=== PATIENT | female | born 2000 | race Two or more races ===

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

== ENCOUNTER 2020-02-03 11:14 | Emergency (ER) | payer OTHER ==
[~2020-02-03] VITALS: Ht 152.4 cm; Wt 53.3 kg
[2020-02-03 11:15] VITALS: BP 110/46
[2020-02-03 11:47] LABS: BASOPHILS % (AUTO) 0 % (0-1); EOSINOPHILS # (AUTO) 0.18 x10^3/uL (0-0.8); EOSINOPHILS % (AUTO) 1 % (1-7); LYMPHOCYTES # (AUTO) 1.31 x10^3/uL (1-6.1); LYMPHOCYTES % (AUTO) 9 % (22-44); MD NO; MEAN CORPUSCULAR HEMOGLOBIN 28.2 pg (27.0-34.8); MEAN CORPUSCULAR HGB CONC 32.6 g/dL (32.4-35.8); MEAN CORPUSCULAR VOLUME 86.4 fL (80-100); MEAN PLATELET VOLUME 7.4 fL (7.4-10.4); MONOCYTES # (AUTO) 0.13 x10^3/uL (0-1.4); MONOCYTES % (AUTO) 1 % (2-9); NEUTROPHILS # (AUTO) 12.45 x10^3/uL (1.8-8.0); NEUTROPHILS % (AUTO) 88 % (42-75); PLATELET COUNT 445 x10^3/uL (130-400); RED BLOOD COUNT 4.47 x10^6/uL (3.82-5.3); RED CELL DISTRIBUTION WIDTH 13.9 % (9.6-15.2)
[2020-02-03 11:58] LABS: ALBUMIN 3.9 g/dL (3.4-5.0); ANION GAP 8 mmol/L (5-15); CALCIUM 8.5 mg/dL (8.5-10.1); CHLORIDE 108 mmol/L (98-107)
--- NOTE | 2020-02-03 12:00 | NUR ---
Pt to room.
--- NOTE | 2020-02-03 12:16 | NUR ---
Pt here for possible miscarriage, pt reports she has been spotting for weeks. Pt reports sever abd pain and not feeling well. Pt reports that she wants to be evaluated. Pt to us at this time.
[2020-02-03 12:21] LABS: CREATININE 0.84 mg/dL (0.55-1.02)
[2020-02-03] MEDS ORDERED: ONDANSETRON ODT 8 MG PO ONE (12:30)
[2020-02-03] MEDS ORDERED: OXYcodone/APAP 5/325MG TABLET PO ONE (12:30)
[2020-02-03] MEDS ORDERED: ONDANSETRON ODT 4 MG ONE (12:53)
[2020-02-03] MEDS ORDERED: OXYcodone/APAP 5/325MG TABLET ONE (12:53)
--- NOTE | 2020-02-03 14:25 | NUR ---
Pt on pelvic bed.
--- NOTE | 2020-02-03 14:59 | NUR ---
waiting for papers.
--- NOTE | 2020-02-03 15:20 | NUR ---
Patient/Caregiver given discharge instructions and they have confirmed that they understand the instructions. Patient ambulatory with steady gait.
== END 2020-02-03 15:21 ==
LOC: ED 15:10
DX: O03.9 Complete or unspecified spontaneous abortion without complication (principal); J45.909 Unspecified asthma, uncomplicated
CPT/HCPCS: 36415; 76801; 80048; 82040; 84702; 85025; 86901; 99284; Q0162

== ENCOUNTER 2020-06-02 06:05 | Emergency (ER) | payer OTHER ==
[~2020-06-02] VITALS: Ht 152.4 cm; Wt 53.5 kg
[2020-06-02 06:44] LABS: MEAN CORPUSCULAR HEMOGLOBIN 28.6 pg (27.0-34.8); MEAN CORPUSCULAR HGB CONC 32.6 g/dL (32.4-35.8); MEAN CORPUSCULAR VOLUME 87.8 fL (80-100); MEAN PLATELET VOLUME 7.3 fL (7.4-10.4); PLATELET COUNT 395 x10^3/uL (130-400); RED BLOOD COUNT 4.43 x10^6/uL (3.82-5.3); RED CELL DISTRIBUTION WIDTH 13.6 % (9.6-15.2)
[2020-06-02 06:52] LABS: ALANINE AMINOTRANSFERASE 19 U/L (12-78); ALBUMIN 3.5 g/dL (3.4-5.0); ANION GAP 5 mmol/L (5-15); CALCIUM 8.6 mg/dL (8.5-10.1); CHLORIDE 110 mmol/L (98-107); CREATININE 1.02 mg/dL (0.55-1.02)
[2020-06-02 06:57] LABS: ALKALINE PHOSPHATASE 54 U/L (45-117); BILIRUBIN,TOTAL 0.3 mg/dL (0.2-1.0); TOTAL PROTEIN 6.8 g/dL (6.4-8.2)
[2020-06-02 07:01] LABS: BASOPHILS # (AUTO) 0.03 x10^3/uL (0-0.3); BASOPHILS % (AUTO) 0 % (0-1); EOSINOPHILS # (AUTO) 0.28 x10^3/uL (0-0.8); EOSINOPHILS % (AUTO) 3 % (1-7); LYMPHOCYTES # (AUTO) 2.47 x10^3/uL (1-6.1); LYMPHOCYTES % (AUTO) 29 % (22-44); MD SCAN; MONOCYTES # (AUTO) 0.59 x10^3/uL (0-1.4); MONOCYTES % (AUTO) 7 % (2-9); NEUTROPHILS # (AUTO) 5.29 x10^3/uL (1.8-8.0); NEUTROPHILS % (AUTO) 61 % (42-75)
--- NOTE | 2020-06-02 07:15 | NUR ---
RECEIVED REPORT FROM LYNETTE AMIN RN. PT CURRENTLY IN US.
--- NOTE | 2020-06-02 07:57 | NUR ---
PT RESTING ON CAROL ANNWILBERT. HALINA. VSS. PT STATES SHE STARTED HAVING LOWER PELVIC PAIN AND BACK PAIN LAST NIGHT WORSE THIS AM WHEN SHE AWOKE. DENIES ANY MEDICAL HX. LBM THIS AM. NO CHANGES.
[2020-06-02 08:34] LABS: MICROSCOPIC AUTO
[2020-06-02 08:56] VITALS: BP 101/56
--- NOTE | 2020-06-02 08:56 | NUR ---
PT RESTING ON GURNEY. NADN. BOJORQUEZ. PT CHART REVIEWED AND PLACED FOR RECHECK.
== END 2020-06-02 09:47 | disposition home or self-care (01) ==
LOC: ED 06:29
DX: K21.0 Gastro-esophageal reflux disease with esophagitis (principal); R10.84 Generalized abdominal pain; J45.909 Unspecified asthma, uncomplicated
CPT/HCPCS: 36415; 76830; 80053; 81001; 83690; 84703; 85025; 93005; 99285

== ENCOUNTER 2021-03-01 10:55 | Emergency (ER) | payer OTHER ==
[~2021-03-01] VITALS: Ht 165.1 cm; Wt 57.2 kg
[2021-03-01 10:57] VITALS: BP 107/74
--- NOTE | 2021-03-01 11:34 | NUR ---
PT IN ROOM, SAFETY PRECAUTIONS IN PLACE, BELONGINGS COLLECTED. SITTER OUTSIDE ROOM FOR SAFETY MONITORING.
[2021-03-01 11:37] LABS: BASOPHILS % (AUTO) 1 % (0-1); EOSINOPHILS % (AUTO) 3 % (1-7); LYMPHOCYTES % (AUTO) 18 % (22-44); MD NO; MEAN CORPUSCULAR HEMOGLOBIN 28.2 pg (27.0-34.8); MEAN CORPUSCULAR HGB CONC 32.8 g/dL (32.4-35.8); MONOCYTES % (AUTO) 7 % (2-9); NEUTROPHILS % (AUTO) 70 % (42-75); PLATELET COUNT 438 x10^3/uL (130-400); RED BLOOD COUNT 4.46 x10^6/uL (3.82-5.3); RED CELL DISTRIBUTION WIDTH 14.7 % (9.6-15.2)
[2021-03-01 11:47] LABS: ALANINE AMINOTRANSFERASE 20 U/L (12-78); ALBUMIN 4.1 g/dL (3.4-5.0); ANION GAP 7 mmol/L (5-15); CALCIUM 8.7 mg/dL (8.5-10.1); CHLORIDE 110 mmol/L (98-107)
[2021-03-01 11:48] LABS: SALICYLATE LEVEL < 1.7 mg/dL (2.8-20.0)
[2021-03-01 11:52] LABS: ALKALINE PHOSPHATASE 52 U/L (45-117); BILIRUBIN,TOTAL 0.5 mg/dL (0.2-1.0); TOTAL PROTEIN 7.1 g/dL (6.4-8.2)
[2021-03-01 12:15] LABS: MICROSCOPIC NOT IND
[2021-03-01 12:33] LABS: AMPHETAMINE SCREEN, URINE Negative (Negative); BENZODIAZEPINE SCREEN, URINE Negative (Negative); CANNABINOID SCREEN, URINE Positive (Negative); COCAINE SCREEN, URINE Negative (Negative); OPIATE SCREEN, URINE Negative (Negative)
[2021-03-01 12:38] LABS: BARBITURATE SCREEN, URINE Negative (Negative); METHADONE SCREEN, URINE Negative (Negative)
--- NOTE | 2021-03-01 12:43 | NUR ---
PT FELT LIKE SHE MIGHT VOMIT SO I GAVE HER EMESIS BAG. MOM IS CURRENTLY IN ROOM.
[2021-03-01] MEDS ORDERED: HYDROXYZINE PAMOATE 50MG CAP ONE (13:36)
--- NOTE | 2021-03-01 13:40 | NUR ---
PT REPORTS INCREASING FEELING OF ANXIETY, MEDICATED PER MAR. MEAL TRAY ORDERED FOR PT.
[2021-03-01] MEDS ORDERED: HYDROXYZINE PAMOATE 50MG CAP PO PRN ×2 (14:00)
--- NOTE | 2021-03-01 14:36 | NUR ---
PROVIDED MEAL TRAY, SITTER OUTSIDE ROOM FOR SAFETY MONITORING.
--- NOTE | 2021-03-01 16:23 | NUR ---
PT RESTING ON GURNEY IN [facility], SITTER OUTSIDE DOOR FOR SAFET MONITORING.
--- NOTE | 2021-03-01 16:27 | NUR ---
REPORT CALLED TO LENY ALEGRIA.
[2021-03-02] MEDS ORDERED: ALBU8.5H8 INH (09:28)
[2021-03-02] MEDS ORDERED: BUDE10.2 INH (09:28)
== END 2021-03-01 16:37 | disposition home or self-care (01) ==
LOC: ED 11:08
DX: F33.9 Major depressive disorder, recurrent, unspecified (principal); R45.851 Suicidal ideations; R42 Dizziness and giddiness; R10.9 Unspecified abdominal pain; R11.0 Nausea; F17.200 Nicotine dependence, unspecified, uncomplicated; J45.909 Unspecified asthma, uncomplicated
CPT/HCPCS: 36415; 80053; 80299; 80307; 80320; 80329; 81003; 84703; 85025; 99284; G0480

== ENCOUNTER 2021-03-01 14:36 | Inpatient (IN) | payer OTHER ==
[~2021-03-01] VITALS: Ht 152.4 cm; Wt 57.2 kg
[2021-03-01] MEDS ORDERED: POLYETHYLENE GLYCOL 17 GM PACKET PO PRN (15:30)
[2021-03-01] MEDS ORDERED: BISACODYL 10 MG SUPP PR PRN (15:30)
[2021-03-01] MEDS ORDERED: ONDANSETRON ODT 4 MG PO PRN (15:30)
[2021-03-01] MEDS ORDERED: ACETAMINOPHEN 325 MG TABLET PO PRN (15:30)
[2021-03-01 18:01] VITALS: BP 114/75
[2021-03-01 19:15] VITALS: BP 106/67
[2021-03-02 06:27] LABS: CHOL/HDL RATIO 1.8; FREE T4 (FREE THYROXINE) 0.84 ng/dL (0.76-1.46); LDL/HDL RATIO 0.6 (0.5-3.0)
[2021-03-02 07:53] VITALS: BP 100/64
[2021-03-02] MEDS ORDERED: ALBU8.5H8 INH (09:28)
[2021-03-02] MEDS ORDERED: BUDE10.2 INH (09:28)
[2021-03-02] MEDS: ALBUTEROL HFA 90 MCG/SPRAY INH PRN (10:10)
[2021-03-02] MEDS: ESCITALOPRAM 10MG TABLET PO SCH (14:01)
[2021-03-02 20:02] VITALS: BP 106/66
[2021-03-02] MEDS ORDERED: BUDESONIDE 0.5 MG/2 ML INHA INH SCH (21:00)
[2021-03-03 07:23] VITALS: BP 108/61
[2021-03-03] MEDS: ESCITALOPRAM 10MG TABLET PO SCH (07:42)
[2021-03-03] MEDS: ALBUTEROL HFA 90 MCG/SPRAY INH PRN (07:46)
[2021-03-03] MEDS: FLUTICASONE/VILANTEROL 100-25MCG/INH INH SCH (08:53)
[2021-03-03 21:32] VITALS: BP 106/68
[2021-03-04 07:12] VITALS: BP 113/75
[2021-03-04] MEDS: FLUTICASONE/VILANTEROL 100-25MCG/INH INH SCH (07:41)
[2021-03-04] MEDS: ESCITALOPRAM 10MG TABLET PO SCH (07:53)
[2021-03-04] MEDS ORDERED: ESCI10TA97 PO (13:44)
[2021-03-04] MEDS ORDERED: HYDR-826 PO (13:44)
== END 2021-03-04 16:05 | disposition home or self-care (01) | DRG 885 ==
LOC: 3E 16:36
PROVIDERS: ADMIT Psychiatry & Neurology Psychosomatic Medicine; ATTEND Psychiatry & Neurology Psychosomatic Medicine
DX: F33.2 Major depressive disorder, recurrent severe without psychotic features (principal); R45.851 Suicidal ideations; J45.909 Unspecified asthma, uncomplicated; F41.1 Generalized anxiety disorder; Z20.822 Contact with and (suspected) exposure to COVID-19; T43.225A Adverse effect of selective serotonin reuptake inhibitors, initial encounter; F12.20 Cannabis dependence, uncomplicated; Z79.51 Long term (current) use of inhaled steroids; Z79.899 Other long term (current) drug therapy; Z91.018 Allergy to other foods; Y92.89 Other specified places as the place of occurrence of the external cause
CPT/HCPCS: 36415; 71045; 80061; 84439; 84443; 87426; 93005; 94640; Q0162; Q0177